=== PATIENT | male | born 1985 | race Hispanic/Latino ===

== ENCOUNTER 2020-05-11 10:15 | Emergency (ER) | payer SELFPAY ==
[2020-05-11] MEDS ORDERED: SODIUM CHLORIDE 0.9% 1000ML 1,000 ML IV ONE (11:06)
[2020-05-11 11:32] LABS: BASOPHILS % (AUTO) 0.3 % (0.0-5.0); EOSINOPHILS % (AUTO) 1.4 % (0.0-8.0); HEMATOCRIT 40.5 % (42-54); LYMPHOCYTES % (AUTO) 23.7 % (21.0-51.0); MEAN CORPUSCULAR HEMOGLOBIN 31.1 pg (27.0-33.0); MEAN CORPUSCULAR HGB CONC 34.1 g/dL (32.0-36.0); MEAN CORPUSCULAR VOLUME 91.2 fL (79-99); MONOCYTES % (AUTO) 4.9 % (3.0-13.0); NEUTROPHILS % (AUTO) 69.2 % (40.0-77.0); PLATELET COUNT (AUTO) 226 K/uL (130-400); RED BLOOD CELL COUNT(AUTO) 4.44 MIL/uL (4.50-6.20); RED CELL DISTRIBUTION WIDTH 12.5 % (11.0-15.5); WHITE BLOOD COUNT (AUTO) 5.9 K/uL (4.8-10.8)
[2020-05-11 11:37] LABS: CREATININE 0.8 mg/dL (0.5-1.5); POTASSIUM 3.5 mmol/L (3.5-5.1)
[2020-05-11 11:40] LABS: AMPHET/METH SCREEN,URINE NEGATIVE (NEGATIVE); BARBITURATE SCREEN, URINE NEGATIVE (NEGATIVE); BENZODIAZEPINES SCREEN,URINE NEGATIVE (NEGATIVE); CANNABINOID SCREEN,URINE NEGATIVE (NEGATIVE); COCAINE SCREEN,URINE NEGATIVE (NEGATIVE); OPIATE SCREEN,URINE NEGATIVE (NEGATIVE); PHENCYCLIDINE SCREEN,URINE NEGATIVE (NEGATIVE)
[2020-05-11 11:41] LABS: ALBUMIN 4.1 g/dL (3.5-5.0); BILIRUBIN,TOTAL 0.7 mg/dL (0.2-1.0); TOTAL PROTEIN, SERUM 8.1 g/dL (6.0-8.3)
[2020-05-11 11:50] LABS: APPEARANCE,URINE Clear (CLEAR); BILIRUBIN,URINE Negative (NEGATIVE); COLOR,URINE Yellow (YELLOW); GLUCOSE, URINE (UA) Negative (NEGATIVE); KETONES,URINE Negative (NEGATIVE); LEUKOCYTE ESTERASE ,URINE Trace (NEGATIVE); NITRATE,URINE Negative (NEGATIVE); OCCULT BLOOD,URINE Negative (NEGATIVE); PROTEIN,URINE Negative (NEGATIVE); UROBILINOGEN,URINE 0.2 mg/dL (0.2-1.0)
[2020-05-11 11:59] LABS: BACTERIA,URINE Rare /HPF (None Seen); RBC,URINE 0-1 /HPF (0-1); SQUAMOUS EPITHELIAL CELL,UR Rare /HPF (0-2); WBC,URINE 0-1 /HPF (0-1)
== END 2020-05-11 13:14 | disposition home or self-care (01) ==
LOC: EDH 10:15
DX: M62.82 Rhabdomyolysis (principal); F31.9 Bipolar disorder, unspecified; F20.9 Schizophrenia, unspecified; Z87.891 Personal history of nicotine dependence
CPT/HCPCS: 36415; 80053; 80305; 81001; 82550; 84484; 85025; 93005; 96360; 99284; J7030

== ENCOUNTER 2020-05-12 15:11 | Inpatient (IN) | payer OTHER, SELFPAY ==
[~2020-05-12] VITALS: Ht 175.3 cm; Wt 95.3 kg
[2020-05-12] MEDS ORDERED: SODIUM CHLORIDE 0.9% 1000ML 1,000 ML IV ONE (15:28)
[2020-05-12 16:14] LABS: CREATININE 0.9 mg/dL (0.5-1.5); POTASSIUM 3.4 mmol/L (3.5-5.1)
[2020-05-12 17:28] LABS: APPEARANCE,URINE Clear (CLEAR); BILIRUBIN,URINE Negative (NEGATIVE); COLOR,URINE Yellow (YELLOW); GLUCOSE, URINE (UA) Negative (NEGATIVE); KETONES,URINE Negative (NEGATIVE); LEUKOCYTE ESTERASE ,URINE Negative (NEGATIVE); NITRATE,URINE Negative (NEGATIVE); OCCULT BLOOD,URINE Negative (NEGATIVE); PROTEIN,URINE Negative (NEGATIVE); UROBILINOGEN,URINE 0.2 mg/dL (0.2-1.0)
[2020-05-12 17:36] LABS: AMPHET/METH SCREEN,URINE NEGATIVE (NEGATIVE); BARBITURATE SCREEN, URINE NEGATIVE (NEGATIVE); BENZODIAZEPINES SCREEN,URINE NEGATIVE (NEGATIVE); CANNABINOID SCREEN,URINE NEGATIVE (NEGATIVE); COCAINE SCREEN,URINE NEGATIVE (NEGATIVE); OPIATE SCREEN,URINE NEGATIVE (NEGATIVE); PHENCYCLIDINE SCREEN,URINE NEGATIVE (NEGATIVE)
[2020-05-12 18:34] LABS: ALBUMIN 4.3 g/dL (3.5-5.0); BILIRUBIN,DIRECT 0.1 mg/dL (0.0-0.3); BILIRUBIN,TOTAL 0.4 mg/dL (0.2-1.0)
[2020-05-12] MEDS ORDERED: ZOLPIDEM TARTRATE 5 MG TAB PO PRN (20:15)
[2020-05-12] MEDS ORDERED: MAG HYDROX/AL HYDROX/SIMETH ES 30 ML SUSP UDCUP PO PRN (20:15)
[2020-05-12] MEDS ORDERED: DIPHENHYDRAMINE HCL 25 MG CAPSULE PO PRN (20:15)
[2020-05-12] MEDS ORDERED: ONDANSETRON HCL 4 MG/2 ML VIAL IV PRN (20:15)
[2020-05-12] MEDS ORDERED: GUAIFENESIN-DM 200/20 MG 10 ML PO PRN (20:15)
[2020-05-12] MEDS ORDERED: LACTULOSE 20 GM/30 ML UDCUP PO PRN (20:15)
[2020-05-12] MEDS ORDERED: ACETAMINOPHEN-CODEINE 300/30MG TAB PO PRN ×2 (20:15)
[2020-05-12] MEDS ORDERED: DiphenhydrAMINE HCL 50 MG/ML VIAL IV PRN (20:15)
[2020-05-12] MEDS ORDERED: PHARMACY COMMUNICATION MISC SCH (21:00)
[2020-05-12] MEDS: HEPARIN SODIUM 5000UNIT/ML 1ML VIAL SQ SCH (21:00)
[2020-05-12] MEDS: FAMOTIDINE 20MG TAB 20 MG TAB PO SCH (21:00)
[2020-05-12 21:08] LABS: BASOPHILS % (AUTO) 0.3 % (0.0-5.0); EOSINOPHILS % (AUTO) 3.3 % (0.0-8.0); HEMATOCRIT 40.3 % (42-54); LYMPHOCYTES % (AUTO) 33.3 % (21.0-51.0); MEAN CORPUSCULAR HEMOGLOBIN 31.1 pg (27.0-33.0); MEAN CORPUSCULAR HGB CONC 34.7 g/dL (32.0-36.0); MEAN CORPUSCULAR VOLUME 89.6 fL (79-99); NEUTROPHILS % (AUTO) 56.6 % (40.0-77.0); PLATELET COUNT (AUTO) 227 K/uL (130-400); RED CELL DISTRIBUTION WIDTH 12.5 % (11.0-15.5)
[2020-05-12 21:24] LABS: ALBUMIN 3.9 g/dL (3.5-5.0); BILIRUBIN,TOTAL 0.4 mg/dL (0.2-1.0); CREATININE 0.8 mg/dL (0.5-1.5); PHOSPHORUS 3.4 mg/dL (2.5-4.9); POTASSIUM 3.4 mmol/L (3.5-5.1); TOTAL PROTEIN, SERUM 7.7 g/dL (6.0-8.3)
[2020-05-13 02:40] VITALS: BP 99/65
[2020-05-13 07:15] LABS: BASOPHILS % (AUTO) 0.3 % (0.0-5.0); EOSINOPHILS % (AUTO) 3.2 % (0.0-8.0); HEMATOCRIT 41.4 % (42-54); LYMPHOCYTES % (AUTO) 32.2 % (21.0-51.0); MEAN CORPUSCULAR HEMOGLOBIN 31.1 pg (27.0-33.0); MEAN CORPUSCULAR HGB CONC 34.3 g/dL (32.0-36.0); MEAN CORPUSCULAR VOLUME 90.8 fL (79-99); MONOCYTES % (AUTO) 7.1 % (3.0-13.0); NEUTROPHILS % (AUTO) 56.9 % (40.0-77.0); PLATELET COUNT (AUTO) 234 K/uL (130-400); RED BLOOD CELL COUNT(AUTO) 4.56 MIL/uL (4.50-6.20); RED CELL DISTRIBUTION WIDTH 12.5 % (11.0-15.5); WHITE BLOOD COUNT (AUTO) 6.2 K/uL (4.8-10.8)
[2020-05-13 07:32] LABS: ALBUMIN 3.8 g/dL (3.5-5.0); BILIRUBIN,TOTAL 0.5 mg/dL (0.2-1.0); PHOSPHORUS 3.2 mg/dL (2.5-4.9); POTASSIUM 3.9 mmol/L (3.5-5.1); TOTAL PROTEIN, SERUM 7.5 g/dL (6.0-8.3)
[2020-05-13 08:26] VITALS: BP 129/73
[2020-05-13] MEDS: FAMOTIDINE 20MG TAB 20 MG TAB PO SCH ×2 (09:02→21:36)
[2020-05-13] MEDS: HEPARIN SODIUM 5000UNIT/ML 1ML VIAL SQ SCH ×2 (09:02→21:44)
[2020-05-13 11:30] VITALS: BP 108/66
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
[2020-05-13 16:57] VITALS: BP 122/76
[2020-05-13] MEDS: SODIUM CHLORIDE 0.9% 1000ML 1,000 ML, SODIUM CHLORIDE 0.9% 1000ML 1,000 ML IV SCH ×3 (17:00→21:46)
--- NOTE | 2020-05-13 19:10 | NUR ---
NURSING ROUNDS PT AWAKE, ALERT, ORIENTED X4. PT IN BED, NO DISTRESS NOTED, NO C/O PAIN VERBALIZED. IV FLUIDS INFUSING, RATE OF 5 ML/HR. OBSERVED PT PRESSING BUTTONS ON THE PUMP I WALKED INTO THE ROOM. PT STATES HE WAS "TURNING OFF BEEPING". ADVISED THE PT TO CALL ON THE CALL LIGHT WHEN THAT OCCURS SO THAT A NURSE CAN RESET THE PUMP ALARM- PT VERBALIZED UNDERSTANDING. CALL LIGHT ON TABLE NEXT TO BEDSIDE. BED LOCKED IN LOWEST POSITION, RAILS UP X2. DOOR LEFT AJAR, WILL CONT TO MONITOR.
[2020-05-13 20:00] VITALS: BP 114/71
--- NOTE | 2020-05-13 22:30 | NUR ---
TELE MONITOR CALLED TO INFORM PT WAS "OFF LEADS". WHEN I WENT TO ASSESS THE PT, HE STATED HE TOOK OFF THE MONITOR TO SLEEP. TELE MONITOR WAS ON SHELF NEAR T.V.. INSTRUCTED PT THAT IT IS NECESSARY FOR PT TO WEAR UNTIL THE DR DISCONTINUES IT. HE REPLIED THAT IT WAS NOT WORKING, HE COULD NOT FEEL IT DOING ANYTHING. EDUCATED PT THAT IT MONITORS THE HEART'S ACTIVITY AND IT IS NORMAL TO NOT FEEL ANYTHING. PT VERBALIZED IN AGREEMENT. LEADS REPLACED AT THIS TIME. NOTICED THE PUMP WAS TURNED OFF. TURNED ON THE PUMP AND SET THE FLUIDS TO INFUSE AT 170 ML/HR. PT REPORTS THAT THE PUMP "TURNED OFF BY ITSELF". IV PUMP FULL BATTERY NOTED, CONNECTED TO WALL PAPER BAG MAKING MACHINIST. CALL LIGHT ON BED WITHIN REACH. WILL CONT TO MONITOR.
[2020-05-14 00:02] VITALS: BP 102/70
[2020-05-14 03:58] LABS: BASOPHILS % (AUTO) 0.3 % (0.0-5.0); EOSINOPHILS % (AUTO) 3.5 % (0.0-8.0); HEMATOCRIT 40.6 % (42-54); LYMPHOCYTES % (AUTO) 43.2 % (21.0-51.0); MEAN CORPUSCULAR HEMOGLOBIN 30.6 pg (27.0-33.0); MONOCYTES % (AUTO) 5.7 % (3.0-13.0); NEUTROPHILS % (AUTO) 46.6 % (40.0-77.0); PLATELET COUNT (AUTO) 214 K/uL (130-400); RED BLOOD CELL COUNT(AUTO) 4.51 MIL/uL (4.50-6.20); RED CELL DISTRIBUTION WIDTH 12.4 % (11.0-15.5); WHITE BLOOD COUNT (AUTO) 5.9 K/uL (4.8-10.8)
[2020-05-14 04:00] VITALS: BP 100/52
[2020-05-14 04:28] LABS: ALBUMIN 3.7 g/dL (3.5-5.0); BILIRUBIN,TOTAL 0.4 mg/dL (0.2-1.0); CREATININE 1.1 mg/dL (0.5-1.5); PHOSPHORUS 3.8 mg/dL (2.5-4.9); POTASSIUM 3.5 mmol/L (3.5-5.1); TOTAL PROTEIN, SERUM 7.4 g/dL (6.0-8.3)
--- NOTE | 2020-05-14 05:05 | NUR ---
CRITICAL LAB RESULTS TOTAL CK 605. IMPROVED FROM YESTERDAY 1056
[2020-05-14] MEDS: SODIUM CHLORIDE 0.9% 1000ML 1,000 ML, SODIUM CHLORIDE 0.9% 1000ML 1,000 ML IV SCH ×2 (06:54→20:19)
[2020-05-14 08:11] VITALS: BP 122/74
[2020-05-14] MEDS: HEPARIN SODIUM 5000UNIT/ML 1ML VIAL SQ SCH ×2 (10:04→20:27)
[2020-05-14] MEDS: FAMOTIDINE 20MG TAB 20 MG TAB PO SCH ×2 (10:05→20:19)
[2020-05-14 11:56] VITALS: BP 102/60
[2020-05-14 16:59] VITALS: BP 105/66
[2020-05-14] MEDS ORDERED: CARBAMAZEPINE 200 MG TABLET PO ONE (19:41)
[2020-05-14 20:00] VITALS: BP 123/68
[2020-05-14] MEDS: CARBAMAZEPINE 200 MG TABLET PO SCH (20:19)
[2020-05-14] MEDS: TRAZODONE HCL 100 MG TABLET PO SCH (20:19)
--- NOTE | 2020-05-14 20:29 | NUR ---
nursing rounds PT SAID HIS IV FELL OUT. REPORTS HE DOES NOT KNOW WHAT HAPPENED TO THE CATHETER. CATHETER NOT VISIBLE. RIGHT AC SKIN INTACT, NO REDNESS OBSERVED. WILL INSERT NEW PIV.
[2020-05-14] MEDS: ACETAMINOPHEN 325 MG TAB PO PRN (23:45)
--- NOTE | 2020-05-14 23:50 | NUR ---
101.3 TEMPERATURE PAGED ONCALL HOSPITALIST. INFORMED BROOKE COLÓN THAT THE PT HAD BEEN AFEBRILE AND NOW HAS SPIKED A TEMP OF 101.3. BROOKE MINA REPORTS THAT SHE WOULD INPUT ORDERS IN [place]. WILL CARRY OUT ORDERS RECEIVED.
--- NOTE | 2020-05-14 23:52 | NUR ---
COMMISSIONER OF RELOCATION SERVICES MADE AWARE THAT PT IS PENDING [place] VIRUS PCR SWAB. PT NOW PUI. PENDING TO TRANSFER PT TO COVID UNIT.
[2020-05-15] VITALS (7 sets, daily range): BP systolic 96–127; BP diastolic 62–72
--- NOTE | 2020-05-15 | NUR ---
UPDATE THERE ARE NO AVAILABLE ROOMS FOR THE PT TO TRANSFER TO ON THE COVID UNIT. PT WILL REMAIN IN HIS ROOM. WILL ISOLATE PT ON ENHANCED PRECAUTIONS.
--- NOTE | 2020-05-15 00:50 | NUR ---
PENDING CORONAVIRUS SWAB CALLED ED TO SEE IF A CHECKED OFF SWAB PREETI WAS AVAILABLE TO TEST THE PT. WAS INFORMED THAT THEY WOULD SEND SOMEONE UP.
[2020-05-15 04:12] LABS: BASOPHILS % (AUTO) 0.2 % (0.0-5.0); HEMATOCRIT 42.6 % (42-54); LYMPHOCYTES % (AUTO) 7.2 % (21.0-51.0); MEAN CORPUSCULAR HEMOGLOBIN 30.5 pg (27.0-33.0); MEAN CORPUSCULAR HGB CONC 34.3 g/dL (32.0-36.0); MEAN CORPUSCULAR VOLUME 88.9 fL (79-99); NEUTROPHILS % (AUTO) 89.2 % (40.0-77.0); PLATELET COUNT (AUTO) 198 K/uL (130-400); RED BLOOD CELL COUNT(AUTO) 4.79 MIL/uL (4.50-6.20); RED CELL DISTRIBUTION WIDTH 12.2 % (11.0-15.5); WHITE BLOOD COUNT (AUTO) 9.8 K/uL (4.8-10.8)
[2020-05-15 04:48] LABS: ALBUMIN 4.1 g/dL (3.5-5.0); BILIRUBIN,TOTAL 0.6 mg/dL (0.2-1.0); MAGNESIUM 1.8 mg/dL (1.80-2.40); PHOSPHORUS 2.7 mg/dL (2.5-4.9); POTASSIUM 3.6 mmol/L (3.5-5.1); TOTAL PROTEIN, SERUM 8.2 g/dL (6.0-8.3)
--- NOTE | 2020-05-15 08:15 | NUR ---
NOTIFIED DR AMY JACKSON pt having covid symptoms ,new orders given
[2020-05-15] MEDS ORDERED: SODIUM CHLORIDE 0.9% 1000ML 1,000 ML IV ONE (08:24)
[2020-05-15] MEDS: FAMOTIDINE 20MG TAB 20 MG TAB PO SCH ×2 (08:29→21:05)
[2020-05-15] MEDS: CARBAMAZEPINE 200 MG TABLET PO SCH ×3 (08:29→21:04)
[2020-05-15] MEDS ORDERED: ERGOCALCIFEROL (VITAMIN D2) 50,000 UNIT CAPSULE PO SCH (08:30)
--- NOTE | 2020-05-15 08:30 | NUR ---
TEMPERATURE 102.0 medicated pt with Tylenol 650mg PO explained to pt to wear mask when staff is present ,pending covid results pt aware of testing for covid
[2020-05-15] MEDS: HEPARIN SODIUM 5000UNIT/ML 1ML VIAL SQ SCH ×2 (08:32→21:07)
[2020-05-15] MEDS: ACETAMINOPHEN 325 MG TAB PO PRN ×3 (08:36→23:38)
[2020-05-15] MEDS: SODIUM CHLORIDE 0.9% 1000ML 1,000 ML, SODIUM CHLORIDE 0.9% 1000ML 1,000 ML IV SCH (08:36)
[2020-05-15 10:13] LABS: CRP QUANTITATIVE 48.5 mg/L (0.00-9.0)
[2020-05-15] MEDS ORDERED: AZITHROMYCIN 500MG+NS 250ML 250 ML IV SCH (11:30)
[2020-05-15] MEDS: CEFTRIAXONE SODIUM 1 GM IVP SCH (11:45)
[2020-05-15] MEDS: DOXYCYCLINE HYCLATE 100 MG TABLET PO SCH (13:45)
[2020-05-15] MEDS: ZINC SULFATE 220 CAPSULE PO SCH (13:45)
[2020-05-15] MEDS: ASCORBIC ACID 500 MG TAB PO SCH (13:45)
[2020-05-15] MEDS ORDERED: VANCOMYCIN PROTOCOL PER PHARMACY IV SCH (18:00)
[2020-05-15] MEDS ORDERED: COMPOUND IV REFRIGERATED 1 EACH IVSOLN MISC PRN (18:45)
[2020-05-15] MEDS: TRAZODONE HCL 100 MG TABLET PO SCH (21:04)
[2020-05-15] MEDS: VANCOMYCIN 1.5 GM in SODIUM CHLORIDE 0.9% 250 ML IV SCH (21:04)
[2020-05-16 03:39] VITALS: BP 105/52
[2020-05-16 04:43] LABS: BASOPHILS % (AUTO) 0.3 % (0.0-5.0); EOSINOPHILS % (AUTO) 0.3 % (0.0-8.0); HEMATOCRIT 42.2 % (42-54); LYMPHOCYTES % (AUTO) 12.8 % (21.0-51.0); MEAN CORPUSCULAR HEMOGLOBIN 30.3 pg (27.0-33.0); MEAN CORPUSCULAR HGB CONC 34.4 g/dL (32.0-36.0); MEAN CORPUSCULAR VOLUME 88.3 fL (79-99); MONOCYTES % (AUTO) 3.9 % (3.0-13.0); NEUTROPHILS % (AUTO) 81.8 % (40.0-77.0); PLATELET COUNT (AUTO) 151 K/uL (130-400); RED BLOOD CELL COUNT(AUTO) 4.78 MIL/uL (4.50-6.20); RED CELL DISTRIBUTION WIDTH 12.3 % (11.0-15.5); WHITE BLOOD COUNT (AUTO) 5.8 K/uL (4.8-10.8)
[2020-05-16 05:00] LABS: ALBUMIN 3.7 g/dL (3.5-5.0); BILIRUBIN,TOTAL 0.4 mg/dL (0.2-1.0)
[2020-05-16] MEDS ORDERED: POTASSIUM CHLORIDE 10% ELIXIR 20 MEQ/15 ML UDCUP PO PRN (05:30)
[2020-05-16] MEDS ORDERED: LIDOCAINE HCL-MPF 1% 2ML VIAL IJ PRN (05:30)
[2020-05-16] MEDS ORDERED: POTASSIUM CHLORIDE 20MEQ/100ML 100 ML IV PRN (05:30)
[2020-05-16] MEDS ORDERED: MAGNESIUM 2GM PREMIX 50ML 50 ML IV PRN (05:30)
[2020-05-16 05:52] LABS: CRP QUANTITATIVE 147.6 mg/L (0.00-9.0)
[2020-05-16 08:00] VITALS: BP 102/67
[2020-05-16] MEDS: CARBAMAZEPINE 200 MG TABLET PO SCH ×3 (08:47→20:06)
[2020-05-16] MEDS: FAMOTIDINE 20MG TAB 20 MG TAB PO SCH ×2 (08:47→19:55)
[2020-05-16] MEDS: ASCORBIC ACID 500 MG TAB PO SCH (08:48)
[2020-05-16] MEDS: ACETAMINOPHEN 325 MG TAB PO PRN ×2 (08:49→22:09)
[2020-05-16] MEDS: CEFTRIAXONE SODIUM 1 GM IVP SCH (08:50)
[2020-05-16] MEDS: ZINC SULFATE 220 CAPSULE PO SCH (08:50)
[2020-05-16] MEDS: POTASSIUM CHLORIDE 20 MEQ ERTAB PO PRN ×3 (08:50→19:55)
[2020-05-16] MEDS: VANCOMYCIN 1.5 GM in SODIUM CHLORIDE 0.9% 250 ML IV SCH ×2 (08:51→19:56)
[2020-05-16] MEDS: HEPARIN SODIUM 5000UNIT/ML 1ML VIAL SQ SCH ×2 (08:55→19:55)
[2020-05-16 11:00] VITALS: BP 113/61
[2020-05-16] MEDS ORDERED: COMPOUND IV REFRIGERATED 1 EACH IVSOLN MISC PRN (12:30)
[2020-05-16] MEDS ORDERED: VANCOMYCIN PROTOCOL PER PHARMACY IV SCH (12:30)
[2020-05-16] MEDS ORDERED: VANCOMYCIN 1.5 GM in SODIUM CHLORIDE 0.9% 250 ML IV SCH (13:00)
[2020-05-16] MEDS: DOXYCYCLINE HYCLATE 100 MG TABLET PO SCH (13:40)
[2020-05-16 16:00] VITALS: BP 115/58
[2020-05-16] MEDS: TRAZODONE HCL 100 MG TABLET PO SCH (19:55)
[2020-05-16 19:56] VITALS: BP 96/50
[2020-05-16 23:24] VITALS: BP 103/51
[2020-05-17] VITALS (7 sets, daily range): BP systolic 101–128; BP diastolic 57–73
[2020-05-17 05:38] LABS: BASOPHILS % (AUTO) 0.2 % (0.0-5.0); HEMATOCRIT 41.8 % (42-54); LYMPHOCYTES % (AUTO) 30.4 % (21.0-51.0); MEAN CORPUSCULAR HEMOGLOBIN 30.7 pg (27.0-33.0); MEAN CORPUSCULAR HGB CONC 34.2 g/dL (32.0-36.0); MEAN CORPUSCULAR VOLUME 89.7 fL (79-99); MONOCYTES % (AUTO) 8.7 % (3.0-13.0); NEUTROPHILS % (AUTO) 59.2 % (40.0-77.0); PLATELET COUNT (AUTO) 129 K/uL (130-400); RED BLOOD CELL COUNT(AUTO) 4.66 MIL/uL (4.50-6.20); RED CELL DISTRIBUTION WIDTH 12.5 % (11.0-15.5)
[2020-05-17 06:18] LABS: ALBUMIN 3.6 g/dL (3.5-5.0); BILIRUBIN,TOTAL 0.3 mg/dL (0.2-1.0); CREATININE 0.9 mg/dL (0.5-1.5); POTASSIUM 3.8 mmol/L (3.5-5.1)
[2020-05-17 07:00] LABS: CRP QUANTITATIVE 196.5 mg/L (0.00-9.0)
[2020-05-17] MEDS: ASCORBIC ACID 500 MG TAB PO SCH (08:01)
[2020-05-17] MEDS: CARBAMAZEPINE 200 MG TABLET PO SCH ×3 (08:02→20:12)
[2020-05-17] MEDS: ZINC SULFATE 220 CAPSULE PO SCH (08:02)
[2020-05-17] MEDS: CEFTRIAXONE SODIUM 1 GM IVP SCH (08:02)
[2020-05-17] MEDS: FAMOTIDINE 20MG TAB 20 MG TAB PO SCH ×2 (08:02→20:12)
[2020-05-17] MEDS: HEPARIN SODIUM 5000UNIT/ML 1ML VIAL SQ SCH ×2 (08:33→20:19)
[2020-05-17] MEDS ORDERED: VANCOMYCIN 1.75 GM in SODIUM CHLORIDE 0.9% 250 ML IV SCH (10:15)
[2020-05-17] MEDS: CEFAZOLIN SODIUM 1 GM VIAL IVP SCH ×2 (14:06→20:12)
[2020-05-17] MEDS: ACETAMINOPHEN 325 MG TAB PO PRN (15:10)
--- NOTE | 2020-05-17 20:00 | NUR ---
AFEBRILE PT AFEBRILE THIS TIME.DENIES PAIN OR DISCOMFORT.
[2020-05-17] MEDS: TRAZODONE HCL 100 MG TABLET PO SCH (20:12)
[2020-05-18 03:30] VITALS: BP 104/62
[2020-05-18] MEDS: CEFAZOLIN SODIUM 1 GM VIAL IVP SCH ×3 (03:48→21:09)
[2020-05-18 05:10] LABS: BASOPHILS % (AUTO) 0.3 % (0.0-5.0); HEMATOCRIT 41.1 % (42-54); LYMPHOCYTES % (AUTO) 40.5 % (21.0-51.0); MEAN CORPUSCULAR HEMOGLOBIN 30.6 pg (27.0-33.0); MEAN CORPUSCULAR HGB CONC 33.8 g/dL (32.0-36.0); MEAN CORPUSCULAR VOLUME 90.5 fL (79-99); MONOCYTES % (AUTO) 9.5 % (3.0-13.0); NEUTROPHILS % (AUTO) 46.2 % (40.0-77.0); PLATELET COUNT (AUTO) 151 K/uL (130-400); RED BLOOD CELL COUNT(AUTO) 4.54 MIL/uL (4.50-6.20); RED CELL DISTRIBUTION WIDTH 12.7 % (11.0-15.5); WHITE BLOOD COUNT (AUTO) 3.7 K/uL (4.8-10.8)
[2020-05-18 05:35] LABS: ALBUMIN 3.5 g/dL (3.5-5.0); BILIRUBIN,TOTAL 0.2 mg/dL (0.2-1.0); CRP QUANTITATIVE 106.5 mg/L (0.00-9.0); POTASSIUM 3.7 mmol/L (3.5-5.1); TOTAL PROTEIN, SERUM 8.1 g/dL (6.0-8.3)
--- NOTE | 2020-05-18 06:09 | NUR ---
NIGHTSHIFT Pt had an uneventful night.No distress noted.
[2020-05-18 07:45] VITALS: BP 131/75
[2020-05-18] MEDS: ZINC SULFATE 220 CAPSULE PO SCH (08:01)
[2020-05-18] MEDS: FAMOTIDINE 20MG TAB 20 MG TAB PO SCH ×2 (08:02→21:08)
[2020-05-18] MEDS: ASCORBIC ACID 500 MG TAB PO SCH (08:02)
[2020-05-18] MEDS: CARBAMAZEPINE 200 MG TABLET PO SCH ×3 (08:02→21:08)
[2020-05-18] MEDS: HEPARIN SODIUM 5000UNIT/ML 1ML VIAL SQ SCH ×2 (08:04→21:10)
[2020-05-18 11:00] VITALS: BP 97/53
[2020-05-18 16:00] VITALS: BP 114/68
[2020-05-18] MEDS: ACETAMINOPHEN 325 MG TAB PO PRN (16:59)
[2020-05-18 19:30] VITALS: BP 114/54
[2020-05-18] MEDS: TRAZODONE HCL 100 MG TABLET PO SCH (21:08)
[2020-05-19] VITALS (7 sets, daily range): BP systolic 94–133; BP diastolic 55–81
[2020-05-19] MEDS: CEFAZOLIN SODIUM 1 GM VIAL IVP SCH ×3 (03:35→19:47)
[2020-05-19] MEDS: HEPARIN SODIUM 5000UNIT/ML 1ML VIAL SQ SCH ×2 (08:25→19:49)
[2020-05-19] MEDS: ASCORBIC ACID 500 MG TAB PO SCH (08:27)
[2020-05-19] MEDS: FAMOTIDINE 20MG TAB 20 MG TAB PO SCH ×2 (08:27→19:48)
[2020-05-19] MEDS: ZINC SULFATE 220 CAPSULE PO SCH (08:27)
[2020-05-19] MEDS: CARBAMAZEPINE 200 MG TABLET PO SCH ×3 (08:27→19:48)
[2020-05-19] MEDS: TRAZODONE HCL 100 MG TABLET PO SCH (19:48)
[2020-05-20] MEDS: CEFAZOLIN SODIUM 1 GM VIAL IVP SCH ×3 (03:15→21:08)
[2020-05-20 03:55] VITALS: BP 133/77
[2020-05-20 05:36] LABS: BASOPHILS % (AUTO) 0.2 % (0.0-5.0); EOSINOPHILS % (AUTO) 2.2 % (0.0-8.0); HEMATOCRIT 40.9 % (42-54); LYMPHOCYTES % (AUTO) 49.2 % (21.0-51.0); MEAN CORPUSCULAR HEMOGLOBIN 29.9 pg (27.0-33.0); MEAN CORPUSCULAR HGB CONC 33.7 g/dL (32.0-36.0); MEAN CORPUSCULAR VOLUME 88.5 fL (79-99); MONOCYTES % (AUTO) 5.9 % (3.0-13.0); NEUTROPHILS % (AUTO) 41.4 % (40.0-77.0); PLATELET COUNT (AUTO) 214 K/uL (130-400); RED BLOOD CELL COUNT(AUTO) 4.62 MIL/uL (4.50-6.20); RED CELL DISTRIBUTION WIDTH 12.4 % (11.0-15.5); WHITE BLOOD COUNT (AUTO) 5.4 K/uL (4.8-10.8)
[2020-05-20 06:08] LABS: ALANINE AMINOTRANSFERASE 80 U/L (12-78); ALBUMIN 3.9 g/dL (3.5-5.0); ASPARTATE AMINOTRANSFERASE 51 U/L (10-37); BILIRUBIN,DIRECT < 0.1 mg/dL (0.0-0.3); BILIRUBIN,TOTAL 0.3 mg/dL (0.2-1.0); CARBON DIOXIDE 26 mmol/L (21-32); CHLORIDE 103 mmol/L (101-111); CREATININE 0.9 mg/dL (0.5-1.5); GLOMERULAR FILTR. RATE CALC 102 mL/min (>60); GLUCOSE,RANDOM 89 mg/dL (70-105); POTASSIUM 3.9 mmol/L (3.5-5.1); SODIUM SERUM 138 mmol/L (136-145); TOTAL PROTEIN, SERUM 8.4 g/dL (6.0-8.3); UREA NITROGEN, BLOOD 14 mg/dL (7-18)
[2020-05-20 08:00] VITALS: BP 100/64
[2020-05-20] MEDS: ASCORBIC ACID 500 MG TAB PO SCH (08:46)
[2020-05-20] MEDS: ZINC SULFATE 220 CAPSULE PO SCH (08:46)
[2020-05-20] MEDS: FAMOTIDINE 20MG TAB 20 MG TAB PO SCH ×2 (08:46→21:08)
[2020-05-20] MEDS: CARBAMAZEPINE 200 MG TABLET PO SCH ×3 (08:46→21:08)
[2020-05-20] MEDS: HEPARIN SODIUM 5000UNIT/ML 1ML VIAL SQ SCH ×2 (08:47→21:10)
[2020-05-20 12:00] VITALS: BP 110/70
[2020-05-20 16:00] VITALS: BP 119/70
[2020-05-20 19:30] VITALS: BP 133/72
[2020-05-20] MEDS: TRAZODONE HCL 100 MG TABLET PO SCH (21:08)
[2020-05-21] VITALS (7 sets, daily range): BP systolic 100–136; BP diastolic 57–81
[2020-05-21] MEDS: CEFAZOLIN SODIUM 1 GM VIAL IVP SCH ×3 (02:34→20:58)
[2020-05-21] MEDS: HEPARIN SODIUM 5000UNIT/ML 1ML VIAL SQ SCH ×2 (09:00→21:10)
[2020-05-21] MEDS: ZINC SULFATE 220 CAPSULE PO SCH (09:55)
[2020-05-21] MEDS: FAMOTIDINE 20MG TAB 20 MG TAB PO SCH ×2 (09:55→20:58)
[2020-05-21] MEDS: ASCORBIC ACID 500 MG TAB PO SCH (09:55)
[2020-05-21] MEDS: CARBAMAZEPINE 200 MG TABLET PO SCH ×3 (09:55→20:58)
--- NOTE | 2020-05-21 09:56 | NUR ---
RDSCREEN - LOS X 9 Pt admitted with elevated CKP, Possible Rhabdo. Pt tolerating Regular diet order with no report of GI distress, Good Po intake at 100%. Obesity Class I. Altered liver lab values (AST 51, ALT 80). Recommend continue Regular diet order RD to continue to monitor. Please notify as nutrition concerns arise. Thank you. Addendum: 05/21/20 at [address] Amended: Links added.
[2020-05-21] MEDS: TRAZODONE HCL 100 MG TABLET PO SCH (20:58)
[2020-05-22 03:14] VITALS: BP 120/69
[2020-05-22] MEDS: CEFAZOLIN SODIUM 1 GM VIAL IVP SCH ×3 (05:08→21:35)
[2020-05-22 05:37] LABS: BASOPHILS % (AUTO) 0.6 % (0.0-5.0); EOSINOPHILS % (AUTO) 1.5 % (0.0-8.0); MEAN CORPUSCULAR HEMOGLOBIN 30.2 pg (27.0-33.0); MEAN CORPUSCULAR VOLUME 88.7 fL (79-99); MONOCYTES % (AUTO) 3.7 % (3.0-13.0); PLATELET COUNT (AUTO) 263 K/uL (130-400); RED BLOOD CELL COUNT(AUTO) 4.51 MIL/uL (4.50-6.20); RED CELL DISTRIBUTION WIDTH 12.3 % (11.0-15.5); WHITE BLOOD COUNT (AUTO) 7.3 K/uL (4.8-10.8)
[2020-05-22 06:07] LABS: ALBUMIN 4.2 g/dL (3.5-5.0); BILIRUBIN,TOTAL 0.2 mg/dL (0.2-1.0); CREATININE 0.9 mg/dL (0.5-1.5); POTASSIUM 3.6 mmol/L (3.5-5.1); TOTAL PROTEIN, SERUM 8.5 g/dL (6.0-8.3)
[2020-05-22 08:00] VITALS: BP 119/71
[2020-05-22] MEDS: FAMOTIDINE 20MG TAB 20 MG TAB PO SCH ×2 (11:13→21:36)
[2020-05-22] MEDS: ASCORBIC ACID 500 MG TAB PO SCH (11:14)
[2020-05-22] MEDS: ZINC SULFATE 220 CAPSULE PO SCH (11:14)
[2020-05-22] MEDS: CARBAMAZEPINE 200 MG TABLET PO SCH ×3 (11:21→21:36)
[2020-05-22] MEDS: HEPARIN SODIUM 5000UNIT/ML 1ML VIAL SQ SCH ×2 (11:47→21:44)
[2020-05-22 12:00] VITALS: BP 121/78
[2020-05-22 16:00] VITALS: BP 121/69
[2020-05-22 21:12] VITALS: BP 117/70
[2020-05-22] MEDS: TRAZODONE HCL 100 MG TABLET PO SCH (21:35)
[2020-05-23 00:29] VITALS: BP 124/78
[2020-05-23 03:32] VITALS: BP 121/80
[2020-05-23] MEDS: CEFAZOLIN SODIUM 1 GM VIAL IVP SCH ×3 (04:15→21:18)
[2020-05-23 08:00] VITALS: BP 131/83
[2020-05-23] MEDS: HEPARIN SODIUM 5000UNIT/ML 1ML VIAL SQ SCH ×2 (09:00→21:00)
[2020-05-23] MEDS: ZINC SULFATE 220 CAPSULE PO SCH (11:02)
[2020-05-23] MEDS: FAMOTIDINE 20MG TAB 20 MG TAB PO SCH ×2 (11:02→21:19)
[2020-05-23] MEDS: CARBAMAZEPINE 200 MG TABLET PO SCH ×3 (11:02→21:19)
[2020-05-23] MEDS: ASCORBIC ACID 500 MG TAB PO SCH (11:03)
[2020-05-23 12:00] VITALS: BP 118/72
[2020-05-23 16:00] VITALS: BP 101/74
[2020-05-23 20:21] VITALS: BP 117/68
--- NOTE | 2020-05-23 21:18 | NUR ---
Nursing Note Pt refused for me to change his IV. Pt stated "No it feels fine, I will let you know" I did inform pt of needing to change the IV after so many days and infections but he didn't want the IV changed. Pt also didn't want Heparin. He doesn't want to be poked by any type of needles.
[2020-05-23] MEDS: TRAZODONE HCL 100 MG TABLET PO SCH (21:19)
[2020-05-24 00:34] VITALS: BP 117/73
[2020-05-24] MEDS: CEFAZOLIN SODIUM 1 GM VIAL IVP SCH ×3 (03:52→21:15)
[2020-05-24 04:21] VITALS: BP 96/60
[2020-05-24 08:00] VITALS: BP 106/65
[2020-05-24] MEDS: HEPARIN SODIUM 5000UNIT/ML 1ML VIAL SQ SCH ×2 (09:00→21:00)
[2020-05-24] MEDS: ZINC SULFATE 220 CAPSULE PO SCH (10:00)
[2020-05-24] MEDS: CARBAMAZEPINE 200 MG TABLET PO SCH ×3 (10:00→21:15)
[2020-05-24] MEDS: ASCORBIC ACID 500 MG TAB PO SCH (10:00)
[2020-05-24] MEDS: FAMOTIDINE 20MG TAB 20 MG TAB PO SCH ×2 (10:01→21:15)
[2020-05-24 12:10] VITALS: BP 117/57
[2020-05-24 16:00] VITALS: BP 109/61
[2020-05-24 20:27] VITALS: BP 105/59
[2020-05-24] MEDS: TRAZODONE HCL 100 MG TABLET PO SCH (21:15)
--- NOTE | 2020-05-24 21:15 | NUR ---
MEDS SHIFT ASSESSMENT DONE, PLEASE REFER TO CHART. DUE MEDS ADMINISTERED, TOLERATED WELL. ENCOURAGED TO REST AND SLEEP. WILL MONITOR PT. Addendum: 05/24/20 at 2356 by OCTAVIO CH RN RN Amended: Links added.
[2020-05-25] VITALS (8 sets, daily range): BP systolic 98–123; BP diastolic 54–80
--- NOTE | 2020-05-25 01:50 | NUR ---
ROUNDS PT RESTING WELL, FAIRLY ASLEEP. NO DISTRESS NOTED. KEPT UNDISTURBED FOR NOW. WILL CONTINUE TO MONITOR.
[2020-05-25] MEDS: CEFAZOLIN SODIUM 1 GM VIAL IVP SCH ×3 (03:24→20:20)
--- NOTE | 2020-05-25 05:59 | NUR ---
ROUNDS PT IS CALM AND QUITE. NO COMPLAINTS VERBALIZED. KEPT RESTED IN BED. FOR MORE CARE.
[2020-05-25] MEDS: HEPARIN SODIUM 5000UNIT/ML 1ML VIAL SQ SCH ×2 (09:00→20:21)
[2020-05-25] MEDS: ZINC SULFATE 220 CAPSULE PO SCH (09:05)
[2020-05-25] MEDS: ASCORBIC ACID 500 MG TAB PO SCH (09:06)
[2020-05-25] MEDS: FAMOTIDINE 20MG TAB 20 MG TAB PO SCH ×2 (09:06→20:20)
[2020-05-25] MEDS: CARBAMAZEPINE 200 MG TABLET PO SCH ×3 (09:06→20:20)
--- NOTE | 2020-05-25 16:05 | NUR ---
[facility] CONTACTED [facility] FOR PATIENT SCREENING PRIOR TO DISCHARGE . LOG NUMBER [id number]. WAS TOLD THAT PATIENT DOES NOT MEET SCREENING REQUIREMENTS THEY WILL FOLLOW-UP WITH PATIENT IN 2 BUSINESS DAY. IF PATIENT RETURNS TO [place] HE WILL NEED TO CALL THE CLINIC THERE AT [phone] FOR FOLLOW-UP APPOINTMENT. INFORMED DR GHOTRA .
--- NOTE | 2020-05-25 17:30 | NUR ---
DISCHARGE PLANNING- BUS TO [place]? PATIENT CLEARED FOR DISCHARGE TO HOME ENVIRONMENT BY [facility]. [facility] HAS NO RIDE- POSSIBLE BUS TICKET, 730 PM, 530 AM [place] TO [place]. TRICIA DUMAS [facility] WILL WORK ON IN AM. Addendum: 05/26/20 at 0826 by RAMÍREZ TAYLOR RN CM Amended: Links added.
--- NOTE | 2020-05-25 18:30 | NUR ---
Will hold discharge for tomorrow due to patient lives in [place] and needs bus transportation arrangement for tomorrow.
[2020-05-25] MEDS: TRAZODONE HCL 100 MG TABLET PO SCH (20:20)
--- NOTE | 2020-05-25 20:20 | NUR ---
MEDS SHIFT ASSESSMENT DONE, PLEASE REFER TO CHART. DUE MEDS ADMINISTERED, TOLERATED WELL. CALL LIGHT WITHIN REACH. WILL MONITOR PT. Addendum: 05/25/20 at 2222 by OCTAVIO CH RN RN Amended: Links added.
--- NOTE | 2020-05-26 02:00 | NUR ---
ROUNDS PT RESTING WELL, FAIRLY ASLEEP. NO DISTRESS NOTED. KEPT UNDISTURBED. WILL MONITOR PT.
[2020-05-26] MEDS: CEFAZOLIN SODIUM 1 GM VIAL IVP SCH ×3 (03:09→20:17)
[2020-05-26 03:26] VITALS: BP 98/53
--- NOTE | 2020-05-26 06:20 | NUR ---
ROUNDS PT RESTING WELL. NO S AND SX OF DISTRESS. NO CONCERNS VERBALIZED. KEPT COMFORTABLE. FOR MORE CARE.
[2020-05-26 08:29] VITALS: BP 114/78
[2020-05-26] MEDS: HEPARIN SODIUM 5000UNIT/ML 1ML VIAL SQ SCH ×2 (09:00→20:17)
[2020-05-26] MEDS: ZINC SULFATE 220 CAPSULE PO SCH (10:30)
[2020-05-26] MEDS: FAMOTIDINE 20MG TAB 20 MG TAB PO SCH ×2 (10:30→20:17)
[2020-05-26] MEDS: ASCORBIC ACID 500 MG TAB PO SCH (10:30)
[2020-05-26] MEDS: CARBAMAZEPINE 200 MG TABLET PO SCH ×3 (10:31→20:17)
[2020-05-26 11:26] VITALS: BP 122/78
--- NOTE | 2020-05-26 13:26 | NUR ---
CM NOTE/DISCHARGE PLANNING MEET WITH PATIENT IN ROOM REGARDING DISCHARGE PLANNING. PER PATIENT, AWARE THAT BUS TICKET WILL BE OBTAINED BY CM DIRECTOR, TRICIA BEST RN AND WILL BE DISCHARGED TODAY. MOTHER CALLED TO CONFIRM TRACK LAYING EQUIPMENT OPERATOR WHEN HE GETS TO THE [place] BUS STOP. PER MOTHER, ALLEGRA FRANCO [phone], AWARE THAT PATIENT WILL ARRIVE AT 6:45AM AND WILL PICK HIM UP FROM BUS STOP TO TAKE HOME TO [id number] [facility] [id number],PATIENT CONFIRMED ADDRESS WELL. TRICIA BEST RN, CM DIRECTOR TO TRACK LAYING EQUIPMENT OPERATOR PATIENT BELONGINGS ALONG WITH ID FROM [facility] AND BUS TICKET FOR PATIENT. DAY CARE SUPERVISOR, CHELA NAJERA, AWARE THAT PATIENT IS NEED OF [place]AXI RIDE SET UP FROM [facility] TO [facility] BUS STOP IN [place] FOR BUS RIDE TO [place]. PRIMARY NURSE, SUSAN DISLA, AWARE THAT PATIENT IS PENDING ID AND BELONGINGS, BUS TICKET, TAXI TO LEAVE FROM [facility] TO BUS STOP. PRIMARY NURSE MADE AWARE OF CONVERSATIONS BETWEEN MOM, PATIENT AND CM DIRECTOR/DAY CARE SUPERVISOR.
--- NOTE | 2020-05-26 15:16 | NUR ---
Bus Ticket Called [facility] and informed patient will need an ID to board the bus. Patient states has an ID, but belongings were not given to patient. Patient states was picked up by [facility] Department and may have ID. Called [facility] Dept at [phone], was transferred, rang multiple times, and then call dropped. Called down to security at ext. [phone] to verify if belongings are here. NAIF Hernandez, CN to also follow up if any belongings are noted to be picked up.
--- NOTE | 2020-05-26 16:24 | NUR ---
SW contacted [employer]. [phone], spoke w/Captjaswinder Gomez who reported that they do not have any of pt's belongings, including ID. NAIF Ramesh/DofCM and PRASANNA Retana made aware.
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
[2020-05-26 17:39] VITALS: BP 118/70
[2020-05-26 20:00] VITALS: BP 118/70
[2020-05-26] MEDS: TRAZODONE HCL 100 MG TABLET PO SCH (20:17)
--- NOTE | 2020-05-26 20:20 | NUR ---
MEDS SHIFT ASSESSMENT DONE, PLEASE REFER TO CHART. DUE MEDS ADMINISTERED, TOLERATED WELL. CALL LIGHT WITHIN REACH. WILL MONITOR PT. Addendum: 05/27/20 at 0206 by OCTAVIO CH RN RN Amended: Links added.
[2020-05-27] VITALS: BP 101/53
--- NOTE | 2020-05-27 02:00 | NUR ---
ROUNDS PT RESTING WELL, FAIRLY ASLEEP. NO DISTRESS NOTED. KEPT UNDISTURBED FOR NOW. WILL MONITOR PT. CALL LIGHT WITHIN REACH.
[2020-05-27] MEDS: CEFAZOLIN SODIUM 1 GM VIAL IVP SCH (03:09)
[2020-05-27 04:00] VITALS: BP 116/61
--- NOTE | 2020-05-27 05:19 | NUR ---
ROUNDS PT RESTING WELL, NO DISTRESS NOTED. NO CONCERNS VERBALIZED. KEPT RESTED AND COMFORTABLE. FOR MORE CARE.
[2020-05-27 08:00] VITALS: BP 109/68
[2020-05-27] MEDS: HEPARIN SODIUM 5000UNIT/ML 1ML VIAL SQ SCH ×2 (09:00→21:00)
[2020-05-27] MEDS: ASCORBIC ACID 500 MG TAB PO SCH (11:52)
[2020-05-27] MEDS: CARBAMAZEPINE 200 MG TABLET PO SCH ×4 (11:52→21:31)
[2020-05-27] MEDS: ZINC SULFATE 220 CAPSULE PO SCH (11:52)
[2020-05-27] MEDS: FAMOTIDINE 20MG TAB 20 MG TAB PO SCH ×2 (11:52→21:00)
[2020-05-27 12:06] VITALS: BP 102/74
[2020-05-27 16:00] VITALS: BP 108/61
--- NOTE | 2020-05-27 20:00 | NUR ---
patient alert and oriented x 3. patient calm in bed and spoke with his mother who was in [place] and driving to [place] to pick him up. patient refused heparin and pepcid. at 22:00, i removed patients iv catheter on right wrist 22 gauge. catheter tip intact. no issues.
[2020-05-27] MEDS: TRAZODONE HCL 100 MG TABLET PO SCH ×2 (21:00→21:31)
== END 2020-05-27 22:25 | disposition home or self-care (01) | DRG 557 ==
LOC: EDH 15:11 → EDHIP 15:12 → 3DH 05-13 02:25 → 3BH 05-15 14:54 → 3DH 05-18 15:08
PROVIDERS: ADMIT Internal Medicine; ATTEND Internal Medicine
DX: M62.82 Rhabdomyolysis (principal); A41.01 Sepsis due to Methicillin susceptible Staphylococcus aureus; B96.89 Other specified bacterial agents as the cause of diseases classified elsewhere; E66.9 Obesity, unspecified; Z20.828 Contact with and (suspected) exposure to other viral communicable diseases; R74.8 Abnormal levels of other serum enzymes; E87.6 Hypokalemia; F25.9 Schizoaffective disorder, unspecified; F31.9 Bipolar disorder, unspecified; F90.9 Attention-deficit hyperactivity disorder, unspecified type; Z68.31 Body mass index [BMI] 31.0-31.9, adult; Z88.5 Allergy status to narcotic agent; Z88.8 Allergy status to other drugs, medicaments and biological substances
CPT/HCPCS: 36415; 71046; 80048; 80053; 80076; 80202; 80305; 81003; 82550; 82728; 82948; 82977; 83605; 83615; 83735; 84100; 84132; 84145; 84484; 85025; 85378; 86140; 86757; 87040; 87077; 87088; 87186; 87426; 93005; 93306; 93356; G0378; J0690; J0696; J1644; J3370; J3480; J7030; J7050; U0003